=== PATIENT | male | born 1990 | race Hispanic/Latino ===

== ENCOUNTER 2019-08-18 05:15 | Emergency (ER) | payer OTHER, SELFPAY ==
[2019-08-18] MEDS ORDERED: TETANUS & DIPHTHERIA TOX,ADULT 0.5 ML VIAL ONE (05:27)
[2019-08-18] MEDS ORDERED: LIDOCAINE 1% W/EPI 1:100,000 MDV 20 ML VIAL ONE (05:27)
[2019-08-18] MEDS ORDERED: CEFAZOLIN/SWI 1gm 2 GM/20 ML SYR ONE (05:28)
[2019-08-18] MEDS ORDERED: CEPHALEXIN 250 MG CAP ONE (05:41)
[2019-08-18] MEDS ORDERED: SMZ./TMP. 800/160 MG TABLET ONE (07:00)
--- NOTE | 2019-08-18 07:57 | ER ---
Nurse's Notes [facility] Name: Jaron Krishnan Jr Age: 28 yrs Sex: Male : 1990 Arrival Date: 08/18/2019 Time: 05:17 Bed 7 Private MD: Diagnosis: Fall due to bumping against object;Laceration with foreign body of unspecified part of head-nose;Fracture of nasal bones Presentation: 08/18 05:24 Presenting complaint: Patient states: he walked out of the bar about 2 hours ago and bb fell on the concrete denies LOC states he was just going to sleep it off until he saw it in the mirror. Transition of care: patient was not received from another setting of care. Complicating Factors: There are no complicating factors for this patient. Onset of symptoms was August 18, 2019. Risk Assessment: Do you want to hurt yourself or someone else? Patient reports no desire to harm self or others. Initial Sepsis Screen: Does the patient meet any 2 criteria? No. Patient's initial sepsis screen is negative. Does the patient have a suspected source of infection? No. Patient's initial sepsis screen is negative. Care prior to arrival: None. 05:24 Method Of Arrival: Ambulatory bb 05:24 Acuity: LIZETTE 4 bb Historical: - Allergies: 05:27 No Known Allergies; bb - Home Meds: 05:27 None [Active]; bb - PMHx: 05:27 Asthma; bb - PSHx: 05:27 Tonsillectomy; bb - Immunization history:: Adult Immunizations up to date. - Coronavirus screen:: The patient has NOT traveled to [place], [place], or [place] in the past 14 days. Proceed with normal triage process as indicated. - Social history:: Smoking status: Patient reports the use of cigarette tobacco products, denies chronic smoking, but will smoke occasionally. - Family history:: not pertinent. - Ebola Screening: : No symptoms or risks identified at this time. Screenin:39 Abuse screen: Denies threats or abuse. Denies injuries from another. Nutritional aa1 screening: No deficits noted. Tuberculosis screening: No symptoms or risk factors identified. Fall Risk None identified. Assessment: 05:39 General: Appears in no apparent distress. comfortable, Behavior is calm, cooperative, aa1 appropriate for age. Pain: Complains of pain in nose. Neuro: Level of Consciousness is awake, alert, obeys commands, Oriented to person, place, time, situation, Moves all extremities. Full function Gait is steady, Speech is normal, Pupils are PERRLA, Denies blurred vision dizziness, headache diplopia. Respiratory: Airway is patent Respiratory effort is even, unlabored, Respiratory pattern is regular, symmetrical. GI: No signs and/or symptoms were reported involving the gastrointestinal system. : No signs and/or symptoms were reported regarding the genitourinary system. EENT: Nares with bleeding noted. Derm: Skin is intact, is healthy with good turgor, Skin is pink, warm \T\ dry. Musculoskeletal: Circulation, motion, and sensation intact. Capillary refill < 3 seconds. Injury Description: Abrasion sustained to forehead was sustained 2-4 hours ago. 06:17 Reassessment: Patient appears in no apparent distress at this time. Patient and/or aa1 family updated on plan of care and expected duration. Pain level reassessed. Patient is alert, oriented x 3, equal unlabored respirations, skin warm/dry/pink. Pt taken to CT at this time. 07:00 Injury Description: Laceration is contaminated, jagged, not bleeding. bp 07:01 Reassessment: Patient appears in no apparent distress at this time. Patient and/or aa1 family updated on plan of care and expected duration. Pain level reassessed. Patient is alert, oriented x 3, equal unlabored respirations, skin warm/dry/pink. Awaiting CT results. 08:05 Reassessment: PT D/C HOME AMBULATORY, DX WITH FALL AND FACIAL LACERATION. bp Vital Signs: 05:27 BP 145 / 101; Pulse 105; Resp 16 S; Temp 98.3(O); Pulse Ox 96% on R/A; Weight 81.65 kg bb (R); Height 5 ft. 6 in. (167.64 cm) (R); Pain 5/10; 05:39 BP 134 / 94; Pulse 92; Resp 16; Pulse Ox 98% on R/A; aa1 06:17 BP 119 / 74; Pulse 90; Resp 16; Pulse Ox 99% on R/A; aa1 07:01 BP 112 / 61; Pulse 89; Resp 16; Pulse Ox 98% ; Pain 0/10; aa1 08:09 BP 130 / 93; Pulse 77; Resp 16; Pulse Ox 100% ; bp 05:27 Body Mass Index 29.05 (81.65 kg, 167.64 cm) bb ED Course: 05:17 Patient arrived in ED. cl3 05:18 Jack Wills MD is Attending Physician. robbi 05:26 Triage completed. bb 05:27 Lizbeth Skinner, RN is Primary Nurse. aa1 05:27 Arm band placed on Patient placed in an exam room, on a stretcher, on pulse oximetry. bb 05:39 Patient has correct armband on for positive identification. Bed in low position. Call aa1 light in reach. Pulse ox on. NIBP on. 06:00 Radiology exam delayed due to Patient being sutured by Dr. Wills. kw1 06:00 Assist provider with laceration repair on bridge of nose that was 2.5 cm. or less using aa1 sutures. Set up tray. Performed by Jack Wills MD Dressed with Neosporin, Patient tolerated well. 06:49 CT Head C Spine In Process Unspecified. EDMS 06:49 CT Facial Bones W/O Con In Process Unspecified. EDMS 07:53 Luci Crenshaw MD is Referral Physician. robbi 08:08 IV discontinued, intact, bleeding controlled, No redness/swelling at site. Pressure bp dressing applied. Administered Medications: 05:27 Drug: Tetanus-Diphtheria Toxoid Adult 0.5 ml {Driller'S Offsider: [employer]. Exp: aa1 06/08/2021. Lot #: [id number]. } Route: IM; Site: left deltoid; 08:09 Follow up: Response: No adverse reaction bp 05:35 Drug: Ancef 2 grams Route: IVPB; Infused Over: 30 mins; Site: right antecubital; aa1 06:00 Follow up: IV Status: Completed infusion aa1 05:39 Drug: KeFLEX 500 mg Route: PO; aa1 06:55 Follow up: Response: No adverse reaction aa1 05:55 Drug: Lidocaine-Epinephrine -1%: (1:100,000) 10 ml Volume: 20 ml; Route: Infiltration; aa1 06:19 Drug: Neosporin Ointment 1 application Route: Topical; Site: affected area; aa1 07:01 Drug: Bactrim (160 mg-800 mg (DS) 1 tablet Route: PO; aa1 08:09 Follow up: Response: No adverse reaction bp Outcome: 07:53 Discharge ordered by . robbi 08:08 Discharged to home ambulatory. bp 08:08 Condition: stable 08:08 Discharge instructions given to patient, Instructed on discharge instructions, follow up and referral plans. medication usage, wound care, Demonstrated understanding of instructions, follow-up care, medications, wound care, Prescriptions given X 3. 08:10 Patient left the ED. bp Signatures: Dispatcher [employer] EDMS Lizbeth Skinner RN RN aa1 Jack Wills MD MD cha Ballard, Brenda, RN RN Nir Berry RN RN Latia Keith1 Lucía Herman cl3
--- NOTE | 2019-08-18 07:58 | EDPHYS ---
Physician Documentation [facility] Name: Jaron Krishnan Jr Age: 28 yrs Sex: Male : 1990 Arrival Date: 08/18/2019 Time: 05:17 Bed 7 Private MD: SADE Physician Jack Wills HPI: 08/18 05:30 This 28 yrs old Male presents to ER via Ambulatory with complaints of robbi Laceration To Nose. 05:30 The patient has a laceration related to: falling occurred outdoors. The laceration(s) robbi is(are) located on the right eye, nose and left eye. Onset: The symptoms/episode began/occurred 4 hour(s) ago. Associated signs and symptoms: Pertinent positives: dizziness. The patient has not experienced similar symptoms in the past. Historical: - Allergies: 05:27 No Known Allergies; bb - Home Meds: 05:27 None [Active]; bb - PMHx: 05:27 Asthma; bb - PSHx: 05:27 Tonsillectomy; bb - Immunization history:: Adult Immunizations up to date. - Coronavirus screen:: The patient has NOT traveled to [place], [place], or [place] in the past 14 days. Proceed with normal triage process as indicated. - Social history:: Smoking status: Patient reports the use of cigarette tobacco products, denies chronic smoking, but will smoke occasionally. - Family history:: not pertinent. - Ebola Screening: : No symptoms or risks identified at this time. ROS: 05:30 Constitutional: Negative for fever, chills, and weight loss, Eyes: Negative for injury, robbi pain, redness, and discharge, Neck: Negative for injury, pain, and swelling, Cardiovascular: Negative for chest pain, palpitations, and edema, Respiratory: Negative for shortness of breath, cough, wheezing, and pleuritic chest pain, Abdomen/GI: Negative for abdominal pain, nausea, vomiting, diarrhea, and constipation, Back: Negative for injury and pain, MS/Extremity: Negative for injury and deformity, Neuro: Negative for headache, weakness, numbness, tingling, and seizure, Psych: Negative for depression, anxiety, suicide ideation, homicidal ideation, and hallucinations, Allergy/Immunology: Negative for hives, rash, and allergies, Endocrine: Negative for neck swelling, polydipsia, polyuria, polyphagia, and marked weight changes. 05:30 : Negative for 05:30 Skin: Positive for laceration(s), swelling, of the right eye, nose and left eye. Exam: 05:33 Constitutional: This is a well developed, well nourished patient who is awake, alert, robbi and in no acute distress. Eyes: Pupils equal round and reactive to light, extra-ocular motions intact. Lids and lashes normal. Conjunctiva and sclera are non-icteric and not injected. Cornea within normal limits. Periorbital areas with no swelling, redness, or edema. ENT: Nares patent. No nasal discharge, no septal abnormalities noted. Tympanic membranes are normal and external auditory canals are clear. Oropharynx with no redness, swelling, or masses, exudates, or evidence of obstruction, uvula midline. Mucous membranes moist. Neck: Trachea midline, no thyromegaly or masses palpated, and no cervical lymphadenopathy. Supple, full range of motion without nuchal rigidity, or vertebral point tenderness. No Meningismus. Chest/axilla: Normal chest wall appearance and motion. Nontender with no deformity. No lesions are appreciated. Cardiovascular: Regular rate and rhythm with a normal S1 and S2. No gallops, murmurs, or rubs. Normal PMI, no JVD. No pulse deficits. Respiratory: Lungs have equal breath sounds bilaterally, clear to auscultation and percussion. No rales, rhonchi or wheezes noted. No increased work of breathing, no retractions or nasal flaring. Abdomen/GI: Soft, non-tender, with normal bowel sounds. No distension or tympany. No guarding or rebound. No evidence of tenderness throughout. Back: No spinal tenderness. No costovertebral tenderness. Full range of motion. Male : Normal genitalia with no discharge or lesions. MS/ Extremity: Pulses equal, no cyanosis. Neurovascular intact. Full, normal range of motion. Neuro: Awake and alert, GCS 15, oriented to person, place, time, and situation. Cranial nerves II-XII grossly intact. Motor strength 5/5 in all extremities. Sensory grossly intact. Cerebellar exam normal. Normal gait. Psych: Awake, alert, with orientation to person, place and time. Behavior, mood, and affect are within normal limits. 05:33 Head/face: Noted is a laceration(s), that is deep, that is jagged, 2.0 cm(s), swelling. Vital Signs: 05:27 BP 145 / 101; Pulse 105; Resp 16 S; Temp 98.3(O); Pulse Ox 96% on R/A; Weight 81.65 kg bb (R); Height 5 ft. 6 in. (167.64 cm) (R); Pain 5/10; 05:39 BP 134 / 94; Pulse 92; Resp 16; Pulse Ox 98% on R/A; aa1 06:17 BP 119 / 74; Pulse 90; Resp 16; Pulse Ox 99% on R/A; aa1 07:01 BP 112 / 61; Pulse 89; Resp 16; Pulse Ox 98% ; Pain 0/10; aa1 08:09 BP 130 / 93; Pulse 77; Resp 16; Pulse Ox 100% ; bp 05:27 Body Mass Index 29.05 (81.65 kg, 167.64 cm) bb Laceration: 05:33 Wound Repair of 2cm ( 0.8in ) subcutaneous laceration to right eye, nose and left eye. robbi Skin/tissue flap noted.. Moderate contamination.. Distal neuro/vascular/tendon intact. Anesthesia: Local anesthetic administered with 3 mls of 1% lidocaine w/ Epi. Wound prep: Moderate cleansing, Extensive cleansing by me. Skin closed with 3 5-0 Prolene using interrupted sutures and sterile technique. Dressed with Neosporin, non-adherent dressing. Patient tolerated well. 06:42 Wound Repair of 2.5cm ( 1.0in ) subcutaneous laceration to forehead. Irregularly robbi shaped.. Moderate contamination.. Possible foreign body or glass noted.. Distal neuro/vascular/tendon intact. Anesthesia: Local anesthetic administered with 5 mls of 1% lidocaine w/ Epi. Wound prep: Extensive cleansing, Copious irrigation. Skin closed with 4 6-0 Prolene using interrupted sutures and sterile technique. Dressed with Neosporin. Patient tolerated well. MDM: 05:22 Patient medically screened. [facility] 05:33 Data reviewed: vital signs, nurses notes, radiologic studies, CT scan. [facility] 08/18 05:26 Order name: CT Head C Spine [facility] 08/18 05:26 Order name: CT Facial Bones W/O Con [facility] 08/18 05:26 Order name: Prolene, Sutures; Complete Time: 05:36 [facility] 08/18 05:26 Order name: Dressing - Wound; Complete Time: 06:19 [facility] 08/18 05:26 Order name: Gloves, Sterile; Complete Time: 05:36 [facility] 08/18 05:26 Order name: Setup Suture Tray; Complete Time: 05:36 [facility] 08/18 05:28 Order name: IV Start; Complete Time: 05:36 aa 08/18 05:38 Order name: Wound Care; Complete Time: 06:19 [facility] Administered Medications: 05:27 Drug: Tetanus-Diphtheria Toxoid Adult 0.5 ml {[employer] Consultant: [employer]. Exp: aa1 06/08/2021. Lot #: [id number]. } Route: IM; Site: left deltoid; 08:09 Follow up: Response: No adverse reaction bp 05:35 Drug: Ancef 2 grams Route: IVPB; Infused Over: 30 mins; Site: right antecubital; aa1 06:00 Follow up: IV Status: Completed infusion aa1 05:39 Drug: KeFLEX 500 mg Route: PO; aa1 06:55 Follow up: Response: No adverse reaction aa1 05:55 Drug: Lidocaine-Epinephrine -1%: (1:100,000) 10 ml Volume: 20 ml; Route: Infiltration; aa1 06:19 Drug: Neosporin Ointment 1 application Route: Topical; Site: affected area; aa1 07:01 Drug: Bactrim (160 mg-800 mg (DS) 1 tablet Route: PO; aa1 08:09 Follow up: Response: No adverse reaction bp Disposition: 08/18/19 07:53 Discharged to Home. Impression: Fall due to bumping against object, Laceration with foreign body of unspecified part of head - nose, Fracture of nasal bones. - Condition is Stable. - Discharge Instructions: Alcohol Intoxication, Facial Laceration, Nasal Fracture, Alcohol Intoxication, [id number], Facial Laceration, [id number], Fall Prevention in the Home, Hizp-qv-[id number], Nasal Fracture, Gqzn-ft-Bndm. - Prescriptions for Keflex 500 mg Oral Capsule - take 1 capsule by ORAL route every 6 hours for 10 days; 40 capsule. Tylenol- Codeine #3 300-30 mg Oral Tablet - take 2 tablets by ORAL route every 6 hours As needed; 20 tablet. Bactrim DS 800- 160 mg Oral Tablet - take 1 tablet by ORAL route every 12 hours for 10 days; 20 tablet. - Medication Reconciliation Form, Thank You Letter, Antibiotic Education, Prescription Opioid Use, Work release form form. - Follow up: Private Physician; When: 5 - 6 days; Reason: Recheck today's complaints, Continuance of care, Re-evaluation by your physician. Follow up: Luci Crenshaw; When: 2 - 3 days; Reason: Recheck today's complaints, Continuance of care, Re-evaluation by your physician. - Problem is new. - Symptoms have improved. Signatures: Dispatcher [employer] EDMS Lizbeth Skinner RN RN aa1 Jack Wills MD MD cha Ballard, Brenda, RN RN Nir Berry RN RN bp Corrections: (The following items were deleted from the chart) 08:10 07:53 08/18/2019 07:53 Discharged to Home. Impression: Fall due to bumping against bp object; Laceration with foreign body of unspecified part of head - nose; Fracture of nasal bones. Condition is Stable. Discharge Instructions: Alcohol Intoxication, Facial Laceration, Alcohol Intoxication, Sadh-iv-Jaeo, Facial Laceration, Hcxp-nk-Tkme, Fall Prevention in the Home, Gjao-as-Fghx, Nasal Fracture, Nasal Fracture, Obaw-hs-Legx. Prescriptions for Keflex 500 mg Oral Capsule - take 1 capsule by ORAL route every 6 hours for 10 days; 40 capsule, Tylenol-Codeine #3 300-30 mg Oral Tablet - take 2 tablets by ORAL route every 6 hours As needed; 20 tablet, Bactrim DS 800-160 mg Oral Tablet - take 1 tablet by ORAL route every 12 hours for 10 days; 20 tablet. and Forms are Medication Reconciliation Form, Thank You Letter, Antibiotic Education, Prescription Opioid Use. Follow up: Private Physician; When: 5 - 6 days; Reason: Recheck today's complaints, Continuance of care, Re-evaluation by your physician. Follow up: Luci Crenshaw; When: 2 - 3 days; Reason: Recheck today's complaints, Continuance of care, Re-evaluation by your physician. Problem is new. Symptoms have improved. robbi
[2019-08-18 08:18] VITALS: TEMP 98.3
[2019-08-18 08:24] VITALS: BP 130/93; O2SAT 100
--- NOTE | 2019-08-18 10:56 | RAD REPORT ---
EXAM DESCRIPTION: CT - Head C Spine Mpr Wo Con - 08/18/2019 7:28 am CLINICAL HISTORY: The patient is 28 years old and is Male; PAIN TECHNIQUE: Axial computed tomography images of the head/brain, face and cervical spine without intra venous contrast. Sagittal and coronal reformatted images were created and reviewed. This CT exam was performed using one or more of the following dose reduction techniques: automated exposure cont rol, adjustment of the mA and/or kV according to patient size, and/or use of iterative reconstruction technique. COMPARISON: No relevant prior studies available. FINDINGS: Brain: Unremarkable. No hemorrhage. No significant white matter disease. No edema. Ventricles: Unremarkable. No ventriculomegaly. Skull: No skull fracture Sinuses: Mucosal thickening bilateral maxillary sinus Mastoid air cells: Unremarkable as visualized. No mastoid effusion. Vertebrae: Unremarkable. No acute fracture. Normal alignment. Discs/spinal canal/neural foramina: No acute findings. No spinal canal stenosis. Soft tissues: Frontal scalp/soft tissue swelling/laceration with superficial 1.5 mm radiopaque structure/foreign body. Facial/Nasal cavity/septum: Minimally displaced nasal bone fracture. No other facial fractures s een. IMPRESSION: 1. No acute intracranial findings. 2. No acute spine abnormality. No fracture or subluxation. 3. Minimally displaced nasal bone fracture. No other facial fractures seen. 4. Frontal scalp/soft tissue swelling/laceration with superficial 1.5 mm radiopaque structure/forei gn body. Electronically signed by: Abraham Oakes MD 08/18/2019 7:12 AM AIRPLANE ENGINEER Due to temporary technical issues with the PACS/Fluency reporting system, reports are being signed by the in house radiologist as a courtesy to ensure prompt reporting. The interpreting radiologist is f ully responsible for the content of the report.
--- NOTE | 2019-08-18 11:02 | RAD REPORT ---
EXAM DESCRIPTION: CT - Facial Bones W/ Mpr - 08/18/2019 7:28 am CLINICAL HISTORY: The patient is 28 years old and is Male; PAIN TECHNIQUE: Axial computed tomography images of the head/brain, face and cervical spine without intra venous contrast. Sagittal and coronal reformatted images were created and reviewed. This CT exam was performed using one or more of the following dose reduction techniques: automated exposure cont rol, adjustment of the mA and/or kV according to patient size, and/or use of iterative reconstruction technique. COMPARISON: No relevant prior studies available. FINDINGS: Brain: Unremarkable. No hemorrhage. No significant white matter disease. No edema. Ventricles: Unremarkable. No ventriculomegaly. Skull: No skull fracture Sinuses: Mucosal thickening bilateral maxillary sinus Mastoid air cells: Unremarkable as visualized. No mastoid effusion. Vertebrae: Unremarkable. No acute fracture. Normal alignment. Discs/spinal canal/neural foramina: No acute findings. No spinal canal stenosis. Soft tissues: Frontal scalp/soft tissue swelling/laceration with superficial 1.5 mm radiopaque structure/foreign body. Facial/Nasal cavity/septum: Minimally displaced nasal bone fracture. No other facial fractures s een. IMPRESSION: 1. No acute intracranial findings. 2. No acute spine abnormality. No fracture or subluxation. 3. Minimally displaced nasal bone fracture. No other facial fractures seen. 4. Frontal scalp/soft tissue swelling/laceration with superficial 1.5 mm radiopaque structure/forei gn body. Electronically signed by: Abraham Oakes MD 08/18/2019 7:12 AM CRECHE ATTENDANT Due to temporary technical issues with the PACS/Fluency reporting system, reports are being signed by the in house radiologist as a courtesy to ensure prompt reporting. The interpreting radiologist is f ully responsible for the content of the report.
== END 2019-08-18 08:10 | disposition home or self-care (01) ==
LOC: ER 05:15
PROC: 0JQ10ZZ Repair Face Subcutaneous Tissue and Fascia, Open Approach (ICD-10-PCS; principal; 2019-08-18)
DX: S01.21XA Laceration without foreign body of nose, initial encounter (principal); S01.81XA Laceration without foreign body of other part of head, initial encounter; S02.2XXA Fracture of nasal bones, initial encounter for closed fracture; W19.XXXA Unspecified fall, initial encounter; Y93.9 Activity, unspecified; Y92.89 Other specified places as the place of occurrence of the external cause; Z72.0 Tobacco use; Z23 Encounter for immunization
CPT/HCPCS: 70450; 70486; 72125; 76377; 90471; 90714; 96365; 99284; J0690